=== PATIENT | male | born 1980 | race Caucasian/White ===

== ENCOUNTER → 2019-11-04 | Outpatient (CLI) | payer OTHER ==
--- NOTE | 2019-11-04 12:15 | US ---
EXAMINATION TYPE: US abdomen complete DATE OF EXAM: 11/04/2019 COMPARISON: NONE CLINICAL HISTORY: R10.11 RUQ Abd pain. RUQ pain EXAM MEASUREMENTS: Liver Length: 14.1 cm Gallbladder Wall: 0.3 cm CBD: 0.5 cm Spleen: 9.3 cm Right Kidney: 10.7 x 4.4 x 5.1 cm Left Kidney: 10.8 x 5.4 x 5.5 cm Pancreas: not well visualized due to overlying bowel gas, Liver: wnl Gallbladder: No stones seen Evidence for sonographic Rothman's sign: No CBD: wnl Spleen: wnl Right Kidney: No hydronephrosis or masses seen Left Kidney: No hydronephrosis or masses seen Upper IVC: wnl Abd Aorta: wnl The visualized liver is homogenous. The intrahepatic portion of the IVC is not well visualized on im ages saved. Visualized abdominal aorta is within normal limits. There is no evidence of shadowing mo bile cholelithiasis. Common bile duct is unremarkable. The pancreas is suboptimally seen on initial images saved secondary to shadowing from overlying bowel gas. Portions are better seen towards end o f study without mass or ductal dilatation. The spleen is unremarkable. Kidneys are symmetric and lala e of hydronephrosis. No renal lesions are seen. IMPRESSION: Slightly suboptimal study, acute finding is not identified.
== END | disposition home or self-care (01) ==
LOC: RADUSWWP 10:08
PROVIDERS: ATTEND Internal Medicine
DX: R10.11 Right upper quadrant pain (principal)
CPT/HCPCS: 76700